=== PATIENT | female | born 1980 | race Caucasian/White ===

== ENCOUNTER → 2024-08-03 11:27 | Outpatient (BNVA) | payer MEDICAID, SELFPAY | PROVIDERS: Family Provider Family Medicine; Visit Provider Family Medicine | DX: M79.671 Pain in right foot (principal) | CPT/HCPCS: 73610; 73630 ==

== ENCOUNTER → 2024-08-05 14:21 | Outpatient (BNVA) | payer MEDICAID, SELFPAY | PROVIDERS: Family Provider Family Medicine; PCP Family Medicine; Visit Provider Podiatrist Foot & Ankle Surgery | DX: M79.671 Pain in right foot (principal); S93.326A Dislocation of tarsometatarsal joint of unspecified foot, initial encounter; W14.XXXA Fall from tree, initial encounter | CPT/HCPCS: 73630 ==

== ENCOUNTER 2024-08-08 07:45 | Outpatient (CLI) | payer MEDICAID, SELFPAY ==
--- NOTE | 2024-08-08 08:00 | MRR_ITS ---
PROCEDURE INFORMATION: Exam: MR Right Lower Extremity Other Than Joint Without Contrast; Foot Exam date and time: 08/08/2024 8:09 AM Age: 44 years old Clinical indication: Pain; Foot; Right; Additional info: Lisfranc injury right foot, evaluate lisfranc interval for fracture dislocation TECHNIQUE: Imaging protocol: Magnetic resonance imaging of the right lower extremity without contrast. Exam focused on the foot. COMPARISON: CR XR foot RT min 3V* [id number] 08/05/2024 2:25 PM FINDINGS: The Lisfranc ligament is not optimally demonstrated but no tear detected. There is no malalignment or abnormal separation at the 1st in 2nd tarsal-metatarsal joints. There is no associated bone injuries at this location. There is a indistinct stress fracture involving the base of the 4th metatarsal. There is also a indistinct focus of bone marrow edema involving the lateral margin of the 3rd cuneiform likely representing a stress reaction. Visualized flexor tendons and extensor tendons are unremarkable. MR/MR foot RT wo con* [id number] IMPRESSION: 1. Stress fracture base of the 4th metatarsal 2. Stress reaction involving the lateral aspect 3rd cuneiform. 3. No compelling evidence of Lisfranc ligament tear.
== END 2024-08-08 07:46 | disposition home or self-care (01) ==
PROVIDERS: Family Provider Family Medicine; PCP Family Medicine; Visit Provider Podiatrist Foot & Ankle Surgery
DX: S93.326A Dislocation of tarsometatarsal joint of unspecified foot, initial encounter (principal); X58.XXXA Exposure to other specified factors, initial encounter; M85.80 Other specified disorders of bone density and structure, unspecified site
CPT/HCPCS: 73718

== ENCOUNTER → 2024-08-27 13:49 | Outpatient (BNVA) | payer MEDICAID, SELFPAY | PROVIDERS: Family Provider Family Medicine; PCP Family Medicine; Visit Provider Podiatrist Foot & Ankle Surgery | DX: M79.671 Pain in right foot (principal); S93.321A Subluxation of tarsometatarsal joint of right foot, initial encounter; S92.341A Displaced fracture of fourth metatarsal bone, right foot, initial encounter for closed fracture; X58.XXXA Exposure to other specified factors, initial encounter | CPT/HCPCS: 73630 ==